=== PATIENT | male | born 1965 | race Caucasian/White ===

== ENCOUNTER 2022-03-31 04:24 | Emergency (ER) | payer SELFPAY ==
[~2022-03-31] VITALS: Ht 185.4 cm; Wt 105.0 kg
[2022-03-31 04:32] VITALS: BP 135/73
== END 2022-03-31 11:32 | disposition left against medical advice (07) ==
LOC: ER 04:26
DX: R51.9 Headache, unspecified (principal); H57.12 Ocular pain, left eye